=== PATIENT | male | born 1945 | race Hispanic/Latino ===

== ENCOUNTER 2019-05-03 18:00 | Outpatient (CLI) | payer MEDICARE | END 2019-05-03 18:01 | disposition home or self-care (01) | LOC: SLEEPLAB 18:00 | PROVIDERS: ATTEND Otolaryngology Otolaryngic Allergy | DX: G47.33 Obstructive sleep apnea (adult) (pediatric) (principal); R06.83 Snoring | CPT/HCPCS: 95806 ==

== ENCOUNTER 2019-11-18 08:37 | Outpatient (CLI) | payer MEDICARE ==
[2019-11-18 14:22] LABS: #Basophils 0.1 thou/uL (0.0-0.2); #Eosinphils 0.1 thou/uL (0.0-0.7); #Monocytes 0.6 thou/uL (0.11-0.59); #Neutrophils 4.4 thou/uL (1.40-6.50); %Basophils 0.9 % (0.0-1.0); %Eosinophils 1.1 % (0.0-10.0); %Lymphocytes 27.9 % (21.0-51.0); %Monocytes 8.1 % (0.0-10.0); Hemoglobin 14.4 g/dL (14.0-18.0); Mean Corpuscular HGB CONC 32.6 g/dL (32.0-36.0); Mean Corpuscular Hemoglobin 31.4 pg (27.0-31.0); Mean Corpuscular Volume 96.2 fL (78.0-98.0); Mean Platelet Volume 8.2 fL (7.4-10.4); Platelet Count 182 thou/uL (130-400); RBC Distribution Width 12.6 % (11.5-14.5); White Blood Cell (WBC) Count 7.2 thou/uL (4.8-10.8)
[2019-11-18 14:32] LABS: Prothrombin Time 13.3 SEC (12.0-14.7)
[2019-11-18 14:38] LABS: Bacteria/HPF None Seen HPF (None Seen); Bilirubin Negative (Negative); Blood, Urine Negative (Negative); Clarity Clear (Clear); Glucose, Urine (Dipstick) Normal (Negative); Leukocyte Negative Leu/uL (Negative); Nitrite Negative (Negative); Protein, Urine (Dipstick) Negative (Neg-Trace); RBC/HPF None Seen HPF (0-3); Squamous Epithelial None Seen HPF (0-3); Urobilinogen Normal mg/dL (Less than 2); WBC/HPF 0-3 HPF (0-3)
[2019-11-18 14:46] LABS: Anion Gap 12 mmol/L (10-20); BUN (Urea Nitrogen) 19 mg/dL (8.4-25.7); Calc. Creatinine Clearance 0 mL/min (70-130); Calcium 8.8 mg/dL (7.8-10.44); Carbon Dioxide 26 mmol/L (23-31); Chloride 105 mmol/L (98-107); Estimated GFR-MDRD 72; Glucose 94 mg/dL (83-110); Potassium 3.9 mmol/L (3.5-5.1); Sodium 139 mmol/L (136-145)
== END 2019-11-18 08:38 | disposition home or self-care (01) ==
LOC: LABBT 08:37
PROVIDERS: ATTEND Orthopaedic Surgery
DX: Z01.818 Encounter for other preprocedural examination (principal); M17.12 Unilateral primary osteoarthritis, left knee
CPT/HCPCS: 80048; 81001; 85025; 85610; 87081; 93005; 93010

== ENCOUNTER 2019-11-30 08:20 | Day surgery (SDC) | payer MEDICARE ==
[2019-11-18 12:40] VITALS: BMI 24.7
[2019-11-30] MEDS ORDERED: Sodium Chloride 0.9% 100 ML ONE (08:59)
[2019-11-30] MEDS ORDERED: Tranexamic Acid 1,000 MG/10 ML VIAL ONE (08:59)
[2019-11-30] MEDS ORDERED: Midazolam HCl 2 mg/2 ml Vial ONE (09:06)
[2019-11-30] MEDS ORDERED: Fentanyl 100 MCG/2 ML VIAL ONE ×2 (09:06→10:15)
[2019-11-30] MEDS ORDERED: Ropivacaine HCl/PF 250 ML in Premix Bag 1 BAG NERVE BLCK SCH (10:10)
[2019-11-30] MEDS ORDERED: Ondansetron PF 4 MG/2 ML Vial IVP PRN ×2 (10:10→11:54)
[2019-11-30] MEDS ORDERED: Promethazine HCl 25 MG/ML VIAL IM PRN ×3 (10:10→11:54)
[2019-11-30] MEDS ORDERED: Zolpidem Tartrate 5 MG TAB PO PRN ×2 (10:10→11:54)
[2019-11-30] MEDS ORDERED: HYDROcodone/Acetaminophen 10/325 mg Tablet PO PRN (10:10)
[2019-11-30] MEDS ORDERED: Acetaminophen 325 MG TAB PO PRN ×2 (10:10→11:54)
[2019-11-30] MEDS ORDERED: traMADol HCl 50 MG TAB PO PRN ×2 (10:10)
[2019-11-30] MEDS ORDERED: Fentanyl 100 MCG/2 ML VIAL SLOW IVP PRN (10:12)
[2019-11-30] MEDS ORDERED: Meperidine HCl/PF 25 MG/ML VIAL SLOW IVP PRN (11:29)
[2019-11-30] MEDS ORDERED: PACU-Morphine 4MG/ML VIAL SLOW IVP PRN (11:29)
[2019-11-30] MEDS ORDERED: Promethazine HCl 25 MG/ML VIAL SLOW IVP PRN (11:29)
[2019-11-30] MEDS ORDERED: diphenhydrAMINE 25 MG CAP PO PRN ×2 (11:54→13:24)
[2019-11-30] MEDS ORDERED: Azelastine 137 MCG/Spray 30 ML NS PRN (11:55)
--- NOTE | 2019-11-30 12:31 | RAD ---
XR Knee Lt 2 View HISTORY: Total knee arthroplasty, postop FINDINGS: There are recent postoperative changes of total knee arthroplasty in good position and alignment. Sof t tissue air is present.
[2019-11-30] MEDS ORDERED: Ondansetron PF 4 MG/2 ML Vial ONE (12:56)
[2019-11-30] MEDS ORDERED: Dexamethasone 20 MG/5 ML VIAL ONE (12:56)
[2019-11-30] MEDS ORDERED: PROPOFOL 200 MG/20 ML VIAL ONE (12:56)
[2019-11-30] MEDS ORDERED: Lidocaine 1% PF 5 ML VIAL ONE (12:56)
[2019-11-30] MEDS ORDERED: Bupivacaine HCl 0.5%/Epinephrine 1:200,000/PF 30 ml Vial ONE (12:56)
[2019-11-30] MEDS ORDERED: Ropivacaine 0.2% HCl/PF (40 MG/20 ML VIAL) ONE (12:56)
[2019-11-30] MEDS ORDERED: Melatonin 3 MG TAB PO PRN (13:24)
[2019-11-30] MEDS ORDERED: Benzonatate 100 MG CAP PO PRN (13:24)
[2019-11-30] MEDS ORDERED: Labetalol HCl 100 MG/20 ML VIAL SLOW IVP PRN (13:24)
[2019-11-30] MEDS ORDERED: Docusate 100 MG CAP PO PRN (13:24)
--- NOTE | 2019-11-30 13:43 | PDOC.HHP ---
Hospitalist HPI - History of Present Illness Severe knee pain History of Present Illness: Very pleasant 74 year old gentleman with severe knee osteoarthritis who has failed medical management presents for elective knee replacement. Patient overall medically very healthy and active. He has had limitations to his activities of daily living secondary to knee discomfort. Patient went for left total knee replacement on 11/30/[address] Matos of [facility], patient tolerated the procedure well without intraoperative complications. I find the patient on the medical/ surgical unit post operatively laying in bed in no distress. Patient breathing comfortably on room air. Denies pain. Has not put weight on the joint yet. Patient with a clean and dry dressing in position. Will follow as internal medicine consultation and aid as able. Hospitalist ROS - Review of Systems All other systems reviewed; all pertinent +/- noted in HPI/Subj Hospitalist History - Past Medical History Source: patient, family, old records Cardiac: denies: AFIB, CAD, CHF, HTN Pulmonary: denies: CVA/TIA/stroke ANALYST GEOCHEMICAL PROSPECTING: reports: Other (restless leg syndrome) Musculoskeletal: reports: Osteoarthritis Renal/: reports: Benign prostatic enlarg. - Past Surgical History Past Surgical History: reports: Total Knee Replacement - Family History Family History: reports: hypertension - Social History Smoking Status: Never smoker Alcohol: reports: None Drugs: reports: none Living Situation: With Family Domestic Violence: Negative Activity level: independent ambulation - Exam General Appearance: NAD, awake alert Eye: anicteric sclera ENT: normocephalic atraumatic, moist mucosa Neck: supple, symmetric, no lymphadenopathy Heart: RRR, no murmur, no gallops, no rubs Respiratory: CTAB, no wheezes, no rales, no ronchi, normal chest expansion, no tachypnea Gastrointestinal: soft, non-tender, non-distended, no guarding, no rigidity Extremities: no edema Skin: no lesions, no rashes Neurological: cranial nerve grossly intact, no new deficit Musculoskeletal: normal strength, no muscle wasting Musculoskeletal - other findings: Left knee with clean and dry dressing Psychiatric: normal affect, normal behavior, A&O x 3 Hospitalist Results - Radiology Interpretation Other Status: image reviewed by az Hospitalist H&P A/P - Problem (1) Osteoarthritis, knee Code(s): M17.10 - UNILATERAL PRIMARY OSTEOARTHRITIS, UNSPECIFIED KNEE Status: Acute (2) Knee pain Code(s): M25.569 - PAIN IN UNSPECIFIED KNEE Status: Acute (3) Ataxia Code(s): R27.0 - ATAXIA, UNSPECIFIED Status: Acute (4) BPH (benign prostatic hyperplasia) Code(s): N40.0 - BENIGN PROSTATIC HYPERPLASIA WITHOUT LOWER URINRY TRACT SYMP Status: Acute (5) Restless leg Status: Acute (6) Vitamin D deficiency Code(s): E55.9 - VITAMIN D DEFICIENCY, UNSPECIFIED Status: Acute - Plan Plan: Plan: Medical/ surgical unit Orthopedic surgery consultation, recommendations appreciated Maria operative care Pain control DVT PPX GI PPX Incentive spirometry Q1 hour while awake PT eval and treat OT eval and treat Patient interested in getting off Clonazepam for restless leg, I recommended he could try Ropinirole on D/c Blood pressure control Blood sugar control Continue home medications as able
[2019-11-30] MEDS: Sodium Chloride 0.9% 1,000 ML IV SCH ×2 (14:58→21:01)
--- NOTE | 2019-11-30 15:53 | OP ---
DATE OF PROCEDURE: 11/30/2019 This is Guy Diego PA-C dictating a report for Forrest Moore MD. PREOPERATIVE DIAGNOSIS: End-stage tricompartmental osteoarthritis, left knee. POSTOPERATIVE DIAGNOSIS: End-stage tricompartmental osteoarthritis, left knee. PROCEDURE PERFORMED: Cemented cruciate-sparing computer-assisted navigated left total knee arthroplasty. REDUCTION FURNACE OPERATOR HELPER: Guy Diego PA-C ANESTHESIA: General via endotracheal tube augmented with indwelling adductor canal and a single-shot sciatic block. COMPONENT USED: [facility] [employer] Triathlon cemented cruciate sparing size 5 femoral component with a size 5 primary cemented tibial baseplate, 9 mm polyethylene fixed bearing insert and A35 patella button. TOURNIQUET TIME: 53 minutes at 300 mmHg. ESTIMATED BLOOD LOSS: Less than 100. FINDINGS: End-stage severe degenerative tricompartmental disease, [id number] arthrosis, periarticular osteophyte formation, large serous effusion, and hypertrophic synovium. DRAINS: None. SPECIMENS: None. COMPLICATIONS: None. COUNTS: Correct. INPUT: 1200 mL of crystalloid. OUTPUT: None measured. No Cruz placed. INDICATION FOR SURGERY: Mk is a 74-year-old male who has had progressive left knee pain and problem with standing and walking for the last 5 to 7 years. He has failed conservative management and elected to proceed with total knee arthroplasty as definitive treatment of his pain. PROCEDURE IN DETAIL: After informed consent was obtained in the preoperative holding area, the patient was taken to the operative suite where general anesthesia was induced. Once adequate level of general anesthesia was obtained, the patient was positioned and a well-padded tourniquet was placed around the left proximal thigh. The left lower extremity was then prepped and draped in the usual sterile fashion. Prior to exsanguination, a time-out was called and all members of the surgical team agreed upon site, surgeon, and patient. The extremity was then exsanguinated and the tourniquet was raised. A midline longitudinal incision was then made directly over the patella extending 2 fingerbreadths above the superior pole of the patella and 2 fingerbreadths inferior to the inferior patellar pole of the patella. Deeper subcutaneous layers were dissected sharply and local bleeding was controlled with Bovie electrocautery. A quad tendon longitudinal split was then made sharply and a median parapatellar arthrotomy was carried out both sharp and with Bovie electrocautery, carried down to 1 fingerbreadth medial to the tibial tubercle. The knee was then placed into flexion and the patella was everted nicely, and a copious fat pad ectomy was performed allowing for greater exposure of the tibia. The computer-assisted distal femoral fiducial was then placed and pinned firmly, and the distal femoral cutting guide was pinned firmly into place. The oscillating saw was then used to remove the appropriate amount of bone. The 4-in-1 cutting block was then placed on the distal femur and the oscillating saw was used to remove the appropriate amount of bone off the anterior, posterior, and chamfer cuts. After completion of bone cuts, the anterior cruciate ligament was resected sharply and the posterior cruciate ligament retractor was placed and the tibia was subluxed for better exposure. Partial meniscectomies were carried out, and the tibial computer-assisted fiducial was pinned, and the cutting guide was placed. Oscillating saw was then used to remove the bone, with Hohmann retractors used to take care and protect the collateral ligaments. After the tibial resection was performed, a laminar test rider was placed in between the freshened bone cuts. The knee placed at 90 degrees and further bilateral meniscectomies were carried out, and the curved osteotome and curettage were used to remove any excess bone spurs in the posterior compartment. The trial femoral component, tibial baseplate were placed with the appropriate polyethylene trial insert with an appropriate polyethylene spacer and patellar button. The knee was taken through full range of motion with flexion and extension from 0 to 90 degrees and patellar broach squarely in the trochlea without any squinting or subluxation noted. The knee was also stable to varus and valgus stressing at 0, 15, 45, and 90 degrees of flexion. The drawer was negative. All trial components were then removed and the keel punch was used to provide the appropriate defect in the tibia with a mallet. The freshened bone cuts were copiously irrigated with pulsatile lavage of about 1.5 L to remove all excess debris. The freshened bone cuts were then dried with suction and lap sponge. The knee was placed in flexion and retractors were placed to provide access to all bone cuts. Tobramycin-impregnated methyl methacrylate cement was then placed on the freshened bone cuts and implants which were malleted firmly into place. Curettage and Bristow elevators were used to remove any excess bone cement. The knee was placed into full extension and the patellar button was placed under compression, and the cement was allowed to cure. Once completed, the components were again taken through full range of motion and copious irrigation of the knee was carried out with another liter of normal saline. All components were inspected fully with full range of motion and varus and valgus stressing. There was no laxity noted and full extension was observed clinically. Primary closure was accomplished with #2 interrupted Vicryl stitch of the arthrotomy defect. This was oversewn with a #2 running Quill barbed stitch. The subcutaneous layer was then closed with a running 0 barbed Monocryl stitch and skin closure accomplished with a running subcuticular 3-0 Monocryl barbed Quill stitch and augmented with cement on the skin. Tourniquet was lowered. Good spontaneous return of distal pulses was noted clinically and a sterile dressing was applied to the incision. The procedure was terminated without any complications. The patient was awakened in the operative suite and taken to the recovery room in stable condition. Job ID: [id number]
[2019-11-30] MEDS: CEFAZOLIN 2 GM in Premix Bag 1 BAG IVPB SCH (16:59)
[2019-11-30] MEDS ORDERED: Ketorolac Tromethamine 30 MG/ML VIAL IVP SCH (18:00)
[2019-11-30] MEDS: Aspirin 81 mg Enteric Coated Tablet PO SCH (20:06)
[2019-11-30] MEDS: Ferrous Gluconate 324 MG TAB PO SCH (20:06)
[2019-11-30] MEDS: Tamsulosin HCl 0.4 MG CAP PO SCH (20:07)
[2019-11-30] MEDS: Senokot S 8.6-50 MG TAB PO SCH (20:07)
[2019-11-30] MEDS: clonazePAM 0.5 MG TAB PO SCH (20:07)
[2019-12-01] MEDS: CEFAZOLIN 2 GM in Premix Bag 1 BAG IVPB SCH (00:49)
[2019-12-01 05:37] LABS: Hemoglobin 12.6 g/dL (14.0-18.0); Mean Corpuscular HGB CONC 30.5 g/dL (32.0-36.0); Mean Corpuscular Hemoglobin 29.2 pg (27.0-31.0); Mean Corpuscular Volume 95.6 fL (78.0-98.0); Platelet Count 193 thou/uL (130-400); RBC Distribution Width 12.5 % (11.5-14.5); Red Blood Cell (RBC) Count 4.31 mill/uL (4.70-6.10); White Blood Cell (WBC) Count 12.1 thou/uL (4.8-10.8)
[2019-12-01] MEDS: Multivitamin W/ Minerals 1 TAB PO SCH (08:36)
[2019-12-01] MEDS: Ferrous Gluconate 324 MG TAB PO SCH ×2 (08:36→20:10)
[2019-12-01] MEDS: Senokot S 8.6-50 MG TAB PO SCH ×2 (08:36→20:09)
[2019-12-01] MEDS: Aspirin 81 mg Enteric Coated Tablet PO SCH ×2 (08:36→20:09)
[2019-12-01] MEDS: Sodium Chloride 0.9% 1,000 ML IV SCH ×2 (08:37→15:13)
[2019-12-01] MEDS: HYDROcodone/Acetaminophen 10/325 mg Tablet PO PRN ×2 (09:58→20:10)
[2019-12-01] MEDS: Fluticasone Propionate Nasal Spray 16 gm Bottle NASAL SCH (09:59)
--- NOTE | 2019-12-01 12:26 | PDOC.HOSPP ---
- Subjective Encounter Date: 12/01/19 Encounter Time: 08:50 Subjective: no sob or pain feels better at bedside - Objective Vital Signs & Weight: Vital Signs (12 hours) Temp Pulse Resp BP Pulse Ox 12/01/19 08:34 98.4 F 77 18 123/71 97 12/01/19 08:00 97 12/01/19 03:51 98.8 F 78 18 119/63 97 Weight Weight 172 lb I&O: 11/30/19 12/01/19 12/02/19 06:59 06:59 06:59 Intake Total 850 Output Total 1350 Balance -500 Result Diagrams: 12/01/19 04:57 Hospitalist ROS - Medication Medications: Active Medications Generic Name Dose Route Start Last Admin Trade Name Freq PRN Reason Stop Dose Admin Hydrocodone Bitart/Acetaminophen 2 tab 11/30/19 10:10 12/01/19 09:58 [place] 10/325 PO 2 tab Q4H PRN Administration PAIN (4-6) Aspirin 81 mg 11/30/19 21:00 12/01/19 08:36 Ecotrin PO 81 mg BID SYLVIA Administration Cholecalciferol 5,000 units 12/01/19 09:00 12/01/19 08:36 Vitamin D3 PO 5,000 units DAILY SYLVIA Administration Clonazepam 0.25 mg 11/30/19 21:00 11/30/19 20:07 Klonopin PO 0.25 mg HS SYLVIA Administration Ferrous Gluconate 324 mg 11/30/19 21:00 12/01/19 08:36 Fergon PO 324 mg BID SYLVIA Administration Fluticasone Propionate 0 gm 12/01/19 09:00 12/01/19 09:59 Flonase Nasal [place] NASAL 2 spr DAILY SYLVIA Administration Ropivacaine 250 ml/ Device 250 mls @ 10 mls/hr 11/30/19 10:10 12/01/19 10:00 NERVE BLCK 12/03/19 10:09 250 mls INF SYLVIA Administration Sodium Chloride 1,000 mls @ 100 mls/hr 11/30/19 12:00 12/01/19 08:37 Normal Saline 0.9% IV Not Given .Q10H SYLVIA Iron/Minerals/Multivitamins 1 tab 12/01/19 09:00 12/01/19 08:36 Theragran M PO 1 tab DAILY SYLVIA Administration Senna/Docusate Sodium 2 tab 02/04/20 21:00 12/01/19 08:36 Senokot S PO 2 tab BID SYLVIA Administration Tamsulosin HCl 0.4 mg 11/30/19 21:00 11/30/19 20:07 Flomax PO 0.4 mg HS SYLVIA Administration Tramadol HCl 50 mg 11/30/19 10:10 12/01/19 06:16 Ultram PO 50 mg Q6H PRN Administration Mild Pain (1-3) - Exam General Appearance: awake alert Eye: PERRL, anicteric sclera ENT: no oropharyngeal lesions, moist mucosa Neck: supple, no JVD Heart: RRR, no murmur Respiratory: no wheezes, no rales Gastrointestinal: soft, non-tender, non-distended, normal bowel sounds Extremities: no cyanosis, no edema Neurological: cranial nerve grossly intact, no focal deficits Psychiatric: normal affect, A&O x 3 Hosp A/P (1) Status post total knee replacement, left Code(s): Z96.652 - PRESENCE OF LEFT ARTIFICIAL KNEE JOINT Status: Acute (2) BPH (benign prostatic hyperplasia) Code(s): N40.0 - BENIGN PROSTATIC HYPERPLASIA WITHOUT LOWER URINRY TRACT SYMP Status: Chronic Qualifiers: Lower urinary tract symptom presence: symptoms absent Qualified Code(s): N40.0 - Benign prostatic hyperplasia without lower urinary tract symptoms (3) Anxiety disorder Code(s): F41.9 - ANXIETY DISORDER, UNSPECIFIED Status: Chronic Qualifiers: Anxiety disorder type: generalized anxiety disorder Qualified Code(s): F41.1 - Generalized anxiety disorder - Plan is on asp bid, ropivacaine nr block, fentanyl, norco and ultram prn is working well with PT continue klonopin, nebs, flomax dc plan per ortho adv
[2019-12-01] MEDS ORDERED: FLU VACC TS2019-20(65YR UP)/PF 180 MCG/0.5 ML SYRINGE IM ONE (14:00)
[2019-12-01] MEDS: clonazePAM 0.5 MG TAB PO SCH (20:09)
[2019-12-01] MEDS: Tamsulosin HCl 0.4 MG CAP PO SCH (20:10)
[2019-12-02] MEDS: Sodium Chloride 0.9% 1,000 ML IV SCH (03:38)
[2019-12-02 07:32] VITALS: BP 120/68; TEMP 98.2
[2019-12-02] MEDS: Multivitamin W/ Minerals 1 TAB PO SCH (09:32)
[2019-12-02] MEDS: Ferrous Gluconate 324 MG TAB PO SCH (09:32)
[2019-12-02] MEDS: Aspirin 81 mg Enteric Coated Tablet PO SCH (09:33)
[2019-12-02] MEDS: Senokot S 8.6-50 MG TAB PO SCH (09:33)
[2019-12-02] MEDS: Fluticasone Propionate Nasal Spray 16 gm Bottle NASAL SCH (09:34)
[2019-12-02] MEDS: HYDROcodone/Acetaminophen 10/325 mg Tablet PO PRN (10:11)
== END 2019-12-02 14:15 | disposition home or self-care (01) ==
LOC: SDC 08:20 → SURG A 11:54 → SDC 12-02 14:15
PROVIDERS: ATTEND Orthopaedic Surgery
PROC: 0SRD0J9 Replacement of Left Knee Joint with Synthetic Substitute, Cemented, Open Approach (ICD-10-PCS; principal; 2019-11-30)
PROC: 8E0YXBZ Computer Assisted Procedure of Lower Extremity (ICD-10-PCS; 2019-11-30)
PROC: 3E0T3BZ Introduction of Anesthetic Agent into Peripheral Nerves and Plexi, Percutaneous Approach (ICD-10-PCS; 2019-11-30)
PROC: 3E0T3BZ Introduction of Anesthetic Agent into Peripheral Nerves and Plexi, Percutaneous Approach (ICD-10-PCS; 2019-11-30)
DX: M17.12 Unilateral primary osteoarthritis, left knee (principal); M77.11 Lateral epicondylitis, right elbow; G47.30 Sleep apnea, unspecified; G25.81 Restless legs syndrome; G89.18 Other acute postprocedural pain; N40.0 Benign prostatic hyperplasia without lower urinary tract symptoms; E55.9 Vitamin D deficiency, unspecified; F41.1 Generalized anxiety disorder; Z79.899 Other long term (current) drug therapy; Z88.6 Allergy status to analgesic agent
CPT/HCPCS: 20985; 27447; 64445; 64448; 73560; 85027; 97116 ×3; 97139 ×3; 97150 ×2; 97530 ×2; 98961; C1713; C1758; C1776; 36415; J0670; J0690; J1100; J2001; J2250; J2405; J2704; J2795; J3010; J3370; J3490

== ENCOUNTER 2022-03-01 19:00 | Outpatient (CLI) | payer MEDICARE | END 2022-03-01 19:01 | disposition home or self-care (01) | LOC: SLEEPLAB 19:00 | PROVIDERS: ATTEND Internal Medicine Critical Care Medicine | DX: G47.33 Obstructive sleep apnea (adult) (pediatric) (principal); G25.81 Restless legs syndrome; R53.83 Other fatigue; R06.83 Snoring; G47.10 Hypersomnia, unspecified; G47.00 Insomnia, unspecified; G47.61 Periodic limb movement disorder | CPT/HCPCS: 95810 ==

== ENCOUNTER 2023-01-08 23:08 | Emergency (ER) | payer MEDICARE ==
[~2023-01-08 23:08] MED LIST: Iopamidol-370 76% 500 ML 1 ML ONE
[2023-01-08] MEDS ORDERED: Acetaminophen 500 MG TAB ONE (23:54)
[2023-01-08 23:57] LABS: #Lymphocytes 2.1 thou/uL (1.20-3.40); #Monocytes 0.6 thou/uL (0.11-0.59); #Neutrophils 4.9 thou/uL (1.40-6.50); %Basophils 0.4 % (0.0-1.0); %Eosinophils 0.3 % (0.0-10.0); %Lymphocytes 27.9 % (21.0-51.0); %Monocytes 7.7 % (0.0-10.0); %Neutrophils 63.7 % (42.0-75.0); Hemoglobin 14.3 g/dL (14.0-18.0); Mean Corpuscular HGB CONC 33.4 g/dL (32.0-36.0); Mean Corpuscular Hemoglobin 32.2 pg (27.0-31.0); Mean Corpuscular Volume 96.5 fl (78.0-98.0); Platelet Count 173 10x3/uL (130-400); RBC Distribution Width 12.3 % (11.5-14.5); Red Blood Cell (RBC) Count 4.43 mill/uL (4.70-6.10); White Blood Cell (WBC) Count 7.7 10x3/uL (4.8-10.8)
[2023-01-09 00:28] LABS: ALT (SGPT) 16 U/L (8-55); AST (SGOT) 21 U/L (5-34); Albumin 3.9 g/dL (3.4-4.8); Alkaline Phosphatase 44 U/L (40-110); Anion Gap 14 mmol/L (10-20); BUN (Urea Nitrogen) 18 mg/dL (8.4-25.7); Bilirubin, Total 0.4 mg/dL (0.2-1.2); Calc. Creatinine Clearance 0 mL/min (70-130); Calcium 9.1 mg/dL (7.8-10.44); Carbon Dioxide 25 mmol/L (23-31); Chloride 104 mmol/L (98-107); Estimated GFR 74; Globulin 3.5 g/dL (2.4-3.5); Glucose 108 mg/dL (83-110); Lipase 16 U/L (8-78); Potassium 3.9 mmol/L (3.5-5.1); Protein, Total 7.4 g/dL (5.8-8.1); Sodium 139 mmol/L (136-145)
[2023-01-09 00:37] LABS: Bilirubin Negative (Negative); Blood, Urine Negative (Negative); Clarity Clear (Clear); Glucose, Urine (Dipstick) Normal (Negative); Ketone, Urine Trace mg/dL (Negative); Leukocyte Negative Leu/uL (Negative); Nitrite Negative (Negative); Protein, Urine (Dipstick) Negative (Neg-Trace); Specific Gravity, Urine 1.023 (1.002-1.036); Urobilinogen Normal mg/dL (Less than 2)
== END 2023-01-09 02:07 | disposition home or self-care (01) ==
LOC: ERS 23:08
DX: R11.2 Nausea with vomiting, unspecified (principal); R19.7 Diarrhea, unspecified; R51.9 Headache, unspecified
CPT/HCPCS: 70450; 74177; 80053; 81003; 83690; 85025; Q9967

== ENCOUNTER 2023-07-15 10:31 | Emergency (ER) | payer MEDICARE ==
[2023-07-15 12:02] LABS: #Monocytes 0.9 thou/uL (0.11-0.59); #Neutrophils 4.4 thou/uL (1.40-6.50); %Basophils 0.1 % (0.0-1.0); %Eosinophils 0.4 % (0.0-10.0); %Lymphocytes 20.2 % (21.0-51.0); %Monocytes 13.7 % (0.0-10.0); %Neutrophils 65.2 % (42.0-75.0); Hematocrit 39.4 % (42.0-52.0); Hemoglobin 13.1 g/dL (14.0-18.0); Mean Corpuscular HGB CONC 33.2 g/dL (32.0-36.0); Mean Corpuscular Hemoglobin 31.3 pg (27.0-31.0); Mean Corpuscular Volume 94.3 fl (78.0-98.0); Mean Platelet Volume 10.9 fL (7.4-10.4); Platelet Count 144 10x3/uL (130-400); RBC Distribution Width 14.3 % (11.5-14.5); Red Blood Cell (RBC) Count 4.18 mill/uL (4.70-6.10); White Blood Cell (WBC) Count 6.8 10x3/uL (4.8-10.8)
[2023-07-15 12:20] LABS: ALT (SGPT) 20 U/L (8-55); AST (SGOT) 25 U/L (5-34); Albumin 3.9 g/dL (3.4-4.8); Alkaline Phosphatase 45 U/L (40-110); Anion Gap 14 mmol/L (10-20); BUN (Urea Nitrogen) 13 mg/dL (8.4-25.7); Bilirubin, Total 0.4 mg/dL (0.2-1.2); Calc. Creatinine Clearance 0 mL/min (70-130); Calcium 8.8 mg/dL (7.8-10.44); Carbon Dioxide 24 mmol/L (23-31); Chloride 104 mmol/L (98-107); Estimated GFR 77; Globulin 3.5 g/dL (2.4-3.5); Glucose 97 mg/dL (83-110); Potassium 4.1 mmol/L (3.5-5.1); Protein, Total 7.4 g/dL (5.8-8.1); Sodium 138 mmol/L (136-145)
== END 2023-07-15 12:40 | disposition home or self-care (01) ==
LOC: ERS 10:31
DX: R05.9 Cough, unspecified (principal); B34.9 Viral infection, unspecified; R04.2 Hemoptysis
CPT/HCPCS: 71045; 80053; 85025; 85379; 99284

== ENCOUNTER 2024-08-12 16:31 | Emergency (ER) | payer MEDICARE | END 2024-08-12 16:56 | disposition left against medical advice (07) | LOC: ERS 16:31 | DX: Z53.21 Procedure and treatment not carried out due to patient leaving prior to being seen by health care provider (principal) ==